=== PATIENT | male | born 1975 | race Caucasian/White ===

== ENCOUNTER → 2016-10-16 | Outpatient (CLI) | payer OTHER ==
--- NOTE | 2016-10-16 12:43 | KCIC ---
Two views bilateral hands Indication: Reason For Study Reason: CHRONIC BILATERAL HAND PAIN, WORSENING X 1 YEAR / Spl. Instructions: / History: Findings: No fracture or dislocation. The joint spaces are well maintained. No erosive lesions. No soft tissue abnormality. Impression: Unremarkable exam of the bilateral hands. Electronically signed by: Manuel Case (Oct 16, 2016 12:41:30)
== END | disposition home or self-care (01) ==
LOC: KCIC 12:17
PROVIDERS: ATTEND Nurse Practitioner Family
DX: M79.642 Pain in left hand (principal); M79.641 Pain in right hand
CPT/HCPCS: 73120